=== PATIENT | male | born 1955 | race Caucasian/White ===

== ENCOUNTER → 2019-02-16 | Outpatient (CLI) | payer MEDICARE, OTHER ==
[~2019-02-16] MED LIST: AZIT250 PO; CARI350 PO; CYCL10; HYDACE10B PO; HYDACE5; HYDACE5 PO; IBUP600 PO; META400 PO; NAPR500; NAPR500 PO; NICO21TP TOP; Permethrin60 GM TP; Ultram50 MG PO; VICO; Veetids 500500 MG PO
[2019-02-16 19:25] LABS: Alanine Aminotransfer (ALT/SGP 19 U/L (12-78); Albumin, Blood 3.4 g/dL (3.4-5.0); Albumin/Globulin Ratio 0.6 (0.8-1.8); Alk Phos 92 U/L (50-136); Anion Gap 3 mmol/L (6-16); Aspartate Aminotrans (AST/SGOT 20 U/L (12-37); Bilirubin, Total 0.6 mg/dL (0.1-1.0); Blood Urea Nitrogen 7 mg/dL (8-24); Bun/Creatinine Ratio 8.9 (12.0-20.0); CO2, Blood 30 mmol/L (21-32); Calcium, Blood 8.9 mg/dL (8.5-10.1); Chloride, Blood 104 mmol/L (98-108); Creatinine, Blood 0.79 mg/dL (0.60-1.20); Globulin, Blood 5.7 g/dL (2.2-4.0); Glomerular Filtration Rate >60 (60-); Glucose, Blood 123 mg/dL (70-99); Potassium, Blood 3.8 mmol/L (3.5-5.5); Sodium, Blood 137 mmol/L (136-145); Total Protein, Blood 9.1 g/dL (6.4-8.2)
== END | disposition home or self-care (01) ==
LOC: LAB 18:32 → LAB SHORT 18:32
PROVIDERS: Nurse Practitioner Family
DX: R74.8 Abnormal levels of other serum enzymes (principal)
CPT/HCPCS: 80053

== ENCOUNTER 2019-09-28 21:50 | Emergency (ER) | payer MEDICARE, OTHER ==
[~2019-09-28] VITALS: Ht 167.6 cm; Wt 68.0 kg
[2019-09-28] MEDS ORDERED: Mobic7.5 MG PO (22:04)
[2019-09-28] MEDS ORDERED: CYCL10 PO (23:18)
[2019-09-28] MEDS ORDERED: LIDO700A20 TOP (23:18)
== END 2019-09-28 23:38 | disposition home or self-care (01) ==
LOC: ER 21:50
DX: G89.29 Other chronic pain (principal); M54.5 Low back pain; Z87.891 Personal history of nicotine dependence; Z79.891 Long term (current) use of opiate analgesic
CPT/HCPCS: 96372; 99283-25; A9270; J1170; J1885

== ENCOUNTER 2019-11-08 10:37 | Day surgery (SDC) | payer MEDICARE, OTHER ==
[~2019-11-08] VITALS: Ht 167.6 cm; Wt 65.0 kg
[~2019-11-08 10:37] MED LIST changes: +AMOCLA875 PO; +CYCL10 PO; +GUAI600T33 PO; +LIDO700A20 TOP; +Mobic7.5 MG PO; +Percocet 5-3251 EACH PO; +VICODIN ES 7.51 EACH PO
--- NOTE | 2019-11-08 11:15 | NUR ---
Ambulatory in Day Surgery. History, Chart, Medications and Allergies reviewed before start of procedure.Patient confirms NPO status and agrees with scheduled surgery. Lungs clear T/O to Auscultation. Spiritual care visit conducted BY FATHER YORDY PER REQUEST OF PT AND . FATHER YORDY provided companionship, emotional support and prayer. Patient and or family unit engaged well and verbalized appreciation. Patient and displayed evidence of stabilization, catharsis, peace or laureen. Patient States Post-Procedure ride home has been arranged WITH .
--- NOTE | 2019-11-08 12:30 | NUR ---
11/08/19 1230 JADE NAILS History, Chart, Medications and Allergies reviewed before start of procedure.3-LEAD EKG REVIEWED WITH PHYSICIAN PRIOR TO START OF PROCEDURE.O2 VIA N/C INTACT THROUGHOUT SEDATION/PROCEDURE. MONITOR INTACT WITH CONTINUOUS PULSE OXIMETRY AND INTERMITTENT BP.
--- NOTE | 2019-11-08 13:59 | NUR ---
MAINTENANCE TECHNICIAN 2ND SHIFT TRANSFERED PT VIA [facility] FOR CHEST XRAY.
--- NOTE | 2019-11-08 14:00 | NUR ---
LATE ENTRY 1334 PT INTO STEP. VSS[address] ESPINAL AT BEDSIDE TO CONSULT WITH PT. DR. ESPINAL STATED HE HAS ALREADY SPOKEN WITH PT'S . PT STATES HE IS COMFORTABLE AT THIS TIME. WILL CONTINUE TO MONITOR.
--- NOTE | 2019-11-08 14:07 | NUR ---
RADIOLOGIST CALLED REPORTS CXR CLEAR, NO ISSUES
--- NOTE | 2019-11-08 15:08 | NUR ---
PT AMBULATED TO RESTROOM WITH RN ASSIST. PT GAIT A BIT UNSTEADY. PT STATES NO NAUSEA OR DIZZINESS.
--- NOTE | 2019-11-08 15:36 | NUR ---
Discharge instructions reviewed with patient. Patient verbalizes understanding. Copy given to patient to take home. PT MEETS CRITERIA FOR D/C. Discharged via wheelchair to private car for ride home. PT STATED SATISFACTION OF CARE.
[2019-11-16 07:21] LABS: Performing Lab SYMBIODX; Test Name PD-L1 LUNG
== END 2019-11-08 15:36 | disposition home or self-care (01) ==
LOC: ORSCMMR 10:37 → EDSTATUS 12:00 → ORD 12:00 → ORSCMMR 15:36 → MRI 17:00
PROVIDERS: Internal Medicine Critical Care Medicine; Physician Assistant Medical
PROC: 0BJ08ZZ Inspection of Tracheobronchial Tree, Via Natural or Artificial Opening Endoscopic (ICD-10-PCS; principal; 2019-11-08 12:00)
DX: Z01.818 Encounter for other preprocedural examination (principal); C34.2 Malignant neoplasm of middle lobe, bronchus or lung
CPT/HCPCS: 71045; 88108; 88305; 88360; J2250; J3010; J7120

== ENCOUNTER 2019-11-12 02:09 | Inpatient (IN) | payer MEDICARE, OTHER ==
[~2019-11-12] VITALS: Ht 167.6 cm; Wt 64.9 kg
[2019-11-12] MEDS ORDERED: ACET325 (02:33)
[2019-11-12] MEDS ORDERED: MELO7.5 (02:33)
[2019-11-12] MEDS ORDERED: LEVFLO500 PO (02:33)
[2019-11-12 02:40] LABS: BASOPHILS ABSOLUTE AUTO 0.04 K/mm3 (0.00-0.23); BASOPHILS PERCENT AUTO 0 % (0-2); EOSINOPHILS ABSOLUTE AUTO 0.02 K/mm3 (0.00-0.68); EOSINOPHILS PERCENT AUTO 0 % (0-6); Hematocrit 46.5 % (37.0-53.0); Hemoglobin 15.7 g/dL (13.5-17.5); IMMATURE GRAN ABSOLUTE AUTO 0.06 K/mm3 (0.00-0.10); IMMATURE GRAN PERCENT AUTO 0 % (0-1); LYMPHOCYTES ABSOLUTE AUTO 4.03 K/mm3 (0.84-5.20); LYMPHOCYTES PERCENT AUTO 30 % (21-46); MONOCYTES ABSOLUTE AUTO 0.87 K/mm3 (0.16-1.47); MONOCYTES PERCENT AUTO 6 % (4-13); Mean Corpuscular HGB 29.6 pg (26.0-34.0); Mean Corpuscular HGB Conc 33.8 g/dL (31.5-36.5); Mean Corpuscular Volume 88 fL (80-100); Mean Platelet Volume 10.5 fL (9.1-12.4); NEUTROPHILS ABSOLUTE AUTO 8.55 K/mm3 (1.96-9.15); NEUTROPHILS PERCENT AUTO 63 % (41-73); Platelet Count 190 K/mm3 (150-400); RDW Coefficient Variation 13.8 % (11.7-14.2); RDW Standard Deviation 44.2 fL (35.1-46.3); Red Blood Cell Count 5.31 M/mm3 (4.30-5.90); White Blood Cell Count 13.57 K/mm3 (4.00-11.30)
[2019-11-12 02:59] LABS: Alanine Aminotransfer (ALT/SGP 14 U/L (12-78); Albumin, Blood 2.5 g/dL (3.4-5.0); Albumin/Globulin Ratio 0.4 (0.8-1.8); Alk Phos 75 U/L (50-136); Anion Gap 11 mmol/L (6-16); Aspartate Aminotrans (AST/SGOT 20 U/L (12-37); Bilirubin, Total 0.8 mg/dL (0.1-1.0); Blood Urea Nitrogen 23 mg/dL (8-24); Bun/Creatinine Ratio 25.3 (12.0-20.0); CO2, Blood 22 mmol/L (21-32); Calcium, Blood 9.5 mg/dL (8.5-10.1); Chloride, Blood 100 mmol/L (98-108); Creatinine, Blood 0.91 mg/dL (0.60-1.20); Globulin, Blood 5.9 g/dL (2.2-4.0); Glomerular Filtration Rate >60 (60-); Glucose, Blood 105 mg/dL (70-99); Potassium, Blood 3.8 mmol/L (3.5-5.5); Sodium, Blood 133 mmol/L (136-145); Total Protein, Blood 8.4 g/dL (6.4-8.2)
[2019-11-12 03:13] LABS: Magnesium, Blood 1.7 mg/dL (1.6-2.4); Troponin I <0.015 ng/mL (0.000-0.040)
--- NOTE | 2019-11-12 07:21 | NUR ---
CHANGE OF SHIFT ADMIT PT SETTLED INTO THE ROOM FROM ER. RESTING IN BED WITHOUT S/S OF DISTRESS, AT BEDSIDE. REPORT GIVEN TO DAYSHIFT RN TO ASSUME CARE OF PT AT THIS TIME.
[2019-11-12 14:31] LABS: Adenovirus Not Detected (NOT DETECT); Bordetella pertussis Not Detected (NOT DETECT); Chlamydophila pneumoniae Not Detected (NOT DETECT); Coronavirus 229E Not Detected (NOT DETECT); Coronavirus HKU1 Not Detected (NOT DETECT); Coronavirus NL63 Not Detected (NOT DETECT); Coronavirus OC43 Not Detected (NOT DETECT); Human Metapneumovirus Not Detected (NOT DETECT); Human Rhinovirus/Enterovirus Not Detected (NOT DETECT); Influenza A Not Detected (NOT DETECT); Influenza A/2009-H1 Not Detected (NOT DETECT); Influenza A/H1 Not Detected (NOT DETECT); Influenza A/H3 Not Detected (NOT DETECT); Influenza B Not Detected (NOT DETECT); Mycoplasma pneumoniae Not Detected (NOT DETECT); Parainfluenza Virus 1 Not Detected (NOT DETECT); Parainfluenza Virus 2 Not Detected (NOT DETECT); Parainfluenza Virus 3 Not Detected (NOT DETECT); Parainfluenza Virus 4 Not Detected (NOT DETECT); Respiratory Syncytial Virus Not Detected (NOT DETECT)
--- NOTE | 2019-11-12 16:23 | NUR ---
SHIFT SUMMARY PT A&O X4, PT TOLORATED SHOWER WELL. PT NEELAM PAIN DURING THIS SHIFT. PT REPORTED ANXIETY AND WENT TO THE ROOM PT SLEEPING QUIETLY. DRESSING CHANGED ON RIGHT ROOT AND LEFT KNEE. PLANS D/C HOME TOMORROW. WILL COUNTINE TO MONITOR AND EPORT TO ONCOMING SHIFT.
--- NOTE | 2019-11-12 16:34 | NUR ---
SHIFT SUMMARY PT RESTING MOST OF THE DAY. PT HAD ONE EPISODE OF EMISIS AND WAS MEDICATED. PT WAS MEDICATED X1 FOR PAIN. DR. OLIVERA PROVIDED CONSULT TODAY. CITLALLI CRUZ TO MONITOR AND REPORT TO ONCOMING SHIFT.
[2019-11-13 05:39] LABS: Hemoglobin 13.8 g/dL (13.5-17.5); Mean Corpuscular HGB 29.4 pg (26.0-34.0); Mean Corpuscular HGB Conc 32.9 g/dL (31.5-36.5); Mean Corpuscular Volume 89 fL (80-100); Mean Platelet Volume 11.1 fL (9.1-12.4); Platelet Count 184 K/mm3 (150-400); RDW Coefficient Variation 13.9 % (11.7-14.2); RDW Standard Deviation 45.6 fL (35.1-46.3); White Blood Cell Count 10.78 K/mm3 (4.00-11.30)
[2019-11-13 06:16] LABS: Alanine Aminotransfer (ALT/SGP 9 U/L (12-78); Albumin, Blood 2.1 g/dL (3.4-5.0); Albumin/Globulin Ratio 0.4 (0.8-1.8); Alk Phos 60 U/L (50-136); Anion Gap 7 mmol/L (6-16); Aspartate Aminotrans (AST/SGOT 12 U/L (12-37); Bilirubin, Total 0.8 mg/dL (0.1-1.0); Blood Urea Nitrogen 14 mg/dL (8-24); CO2, Blood 26 mmol/L (21-32); Calcium, Blood 8.8 mg/dL (8.5-10.1); Chloride, Blood 102 mmol/L (98-108); Creatinine, Blood 0.78 mg/dL (0.60-1.20); Glomerular Filtration Rate >60 (60-); Glucose, Blood 86 mg/dL (70-99); Potassium, Blood 3.7 mmol/L (3.5-5.5); Sodium, Blood 135 mmol/L (136-145); Total Protein, Blood 7.1 g/dL (6.4-8.2)
--- NOTE | 2019-11-13 07:37 | NUR ---
SHIFT SUMMARY PT CONTINUED TO HAVE RIGHT CX DISCOMFORT AND INCREASED COUGH. PT MEDICATED PER EARNESTINE AND TESSALON WAS ORDERED. PT RESPONDED WELL TO 50 MCG OF FENT. AND COUGH MED. PT WAS ABLE TO SLEEP WELL T/O SLEEP. PT HAD NO OTHER ISSUES NOTED. CALL LIGHT IN REACH.
--- NOTE | 2019-11-13 18:32 | NUR ---
NO ACUTE CHANGES. PATIENT REQUESTED AND WAS GIVEN PAIN MEDS ONCE THIS SHIFT. HE HAS BEEN ALERT AND ORIENTED . HE IS WEAK BUT WAS ABLE TO SHOWER TODAY. HAS BEEN AT BEDSIDE THROUGHOUT THE SHIFT.
--- NOTE | 2019-11-14 06:48 | NUR ---
PT with pneumonia and recently dx pneumonia continues on ABX IV to treat. Oncology consult will start chemo tomorrow. Room air, tolerating diet with some constipation. Bowel care protocol orders obtained. Medicated with fentanyl 50 mcg x 1 and tylenol 650 mg. Continues with fevers, which are much lower orally than temporal. in and supportive, Support offered for lung cancer dx exsmoker quit 7 years ago. Pleasant and hopeful.
--- NOTE | 2019-11-14 17:42 | NUR ---
NO ACUTE CHANGES. PATIENT REMAINS WEAK BUT IS ABLE TO AMBULATE TO THE RESTROOM AND SHOWER. HE USES THE CALL LIGHT APPROPRIATELY AND IS ALERT AND ORIENTED. HAS BEEN AT BEDSIDE THROUGH OUT THE DAY. APPETITE IMPROVING BUT ACCORDING TO FAMILY NOT HIS USUAL . PATIENT HAS REQUESTED AND BEEN GIVEN PAIN MEDS ONCE THIS SHIFT. CALL LIGHT WITHIN REACH.
--- NOTE | 2019-11-15 04:15 | NUR ---
SHIFT SUMMARY PT HAD SOME CX PAIN AND COUGH. PT TX PER EMAR WITH GOOD RESULTS. PT MAY BENEFIT FROM A SLEEP AID. PT DID SLEEP WELL THIS SHIFT. NO OTHER ISSUES NOTED. PT CURRENTLY AWAKE IN NO DISTRESS. CALL LIGHT IN REACH.
[2019-11-15 04:44] LABS: BASOPHILS ABSOLUTE AUTO 0.04 K/mm3 (0.00-0.23); BASOPHILS PERCENT AUTO 0 % (0-2); EOSINOPHILS ABSOLUTE AUTO 0.07 K/mm3 (0.00-0.68); EOSINOPHILS PERCENT AUTO 1 % (0-6); Hematocrit 40.7 % (37.0-53.0); Hemoglobin 13.6 g/dL (13.5-17.5); IMMATURE GRAN ABSOLUTE AUTO 0.05 K/mm3 (0.00-0.10); IMMATURE GRAN PERCENT AUTO 1 % (0-1); LYMPHOCYTES ABSOLUTE AUTO 3.13 K/mm3 (0.84-5.20); LYMPHOCYTES PERCENT AUTO 30 % (21-46); MONOCYTES ABSOLUTE AUTO 0.56 K/mm3 (0.16-1.47); MONOCYTES PERCENT AUTO 5 % (4-13); Mean Corpuscular HGB 29.4 pg (26.0-34.0); Mean Corpuscular HGB Conc 33.4 g/dL (31.5-36.5); Mean Corpuscular Volume 88 fL (80-100); Mean Platelet Volume 10.7 fL (9.1-12.4); NEUTROPHILS ABSOLUTE AUTO 6.75 K/mm3 (1.96-9.15); NEUTROPHILS PERCENT AUTO 64 % (41-73); Platelet Count 183 K/mm3 (150-400); RDW Coefficient Variation 13.9 % (11.7-14.2); RDW Standard Deviation 44.8 fL (35.1-46.3); Red Blood Cell Count 4.62 M/mm3 (4.30-5.90)
[2019-11-15 05:02] LABS: Albumin, Blood 1.9 g/dL (3.4-5.0); Anion Gap 7 mmol/L (6-16); Blood Urea Nitrogen 11 mg/dL (8-24); Bun/Creatinine Ratio 13.7 (12.0-20.0); CO2, Blood 24 mmol/L (21-32); Calcium, Blood 8.5 mg/dL (8.5-10.1); Chloride, Blood 102 mmol/L (98-108); Glomerular Filtration Rate >60 (60-); Glucose, Blood 106 mg/dL (70-99); Phosphorus, Blood 2.1 mg/dL (2.5-4.9); Potassium, Blood 3.5 mmol/L (3.5-5.5); Sodium, Blood 133 mmol/L (136-145)
--- NOTE | 2019-11-15 05:22 | NUR ---
PT FOUND WITH ELEVATED TEMP TX WITH TYLENOL. WILL REASSESS.
--- NOTE | 2019-11-15 17:51 | NUR ---
SHIFT SUMMARY PATIENT IS TOLERATING HIS IV ANTIBIOTICS AND FLUIDS WELL. RECIEVED A SHOWER TODAY. INDEPENDENT IN THE ROOM. ASSISTS WITH SOME ADLS. CURRENTLY EATING DINNER. AWAITING CHEMO IN THE AM.
--- NOTE | 2019-11-16 04:05 | NUR ---
Shift Summary Patient has slept a fair amount. He requested PRN fentanyl for right-sided chest/pleuritic pain and this was effective.
[2019-11-16 05:01] LABS: Albumin, Blood 1.9 g/dL (3.4-5.0); Anion Gap 8 mmol/L (6-16); Blood Urea Nitrogen 10 mg/dL (8-24); Bun/Creatinine Ratio 14.5 (12.0-20.0); CO2, Blood 23 mmol/L (21-32); Calcium, Blood 8.4 mg/dL (8.5-10.1); Chloride, Blood 101 mmol/L (98-108); Creatinine, Blood 0.69 mg/dL (0.60-1.20); Glomerular Filtration Rate >60 (60-); Glucose, Blood 111 mg/dL (70-99); Phosphorus, Blood 2.2 mg/dL (2.5-4.9); Potassium, Blood 3.6 mmol/L (3.5-5.5); Sodium, Blood 132 mmol/L (136-145)
--- NOTE | 2019-11-16 18:47 | NUR ---
ASSUMED CARE/SHIFT SUMMARY PT STABLE, FIRST CHEMO TREATMENT STARTED TODAY PT TOLORATED WELL. PT INDEPENTENT IN ROOM. PT REPORTS FEELING SHAKEY TEMP CHECKED 98.6. PT DIDN'T EAT MUCH OF DINNER. AT BEDSIDE. CALL LIGHT WITH IN REACH WILL COUNTINUE TO MONITOR AND REPORT TO ON COMING NOC RN.
--- NOTE | 2019-11-17 04:20 | NUR ---
Shift Summary Patient slept well overnight. he denied pain and did not request any pain medicaitons. No nausea or other chemotherapy side effects noted except that he stated he felt tired.
[2019-11-17 05:42] LABS: Albumin, Blood 1.8 g/dL (3.4-5.0); Anion Gap 8 mmol/L (6-16); Blood Urea Nitrogen 12 mg/dL (8-24); Bun/Creatinine Ratio 15.7 (12.0-20.0); CO2, Blood 24 mmol/L (21-32); Calcium, Blood 8.5 mg/dL (8.5-10.1); Chloride, Blood 101 mmol/L (98-108); Creatinine, Blood 0.76 mg/dL (0.60-1.20); Glomerular Filtration Rate >60 (60-); Glucose, Blood 99 mg/dL (70-99); Phosphorus, Blood 2.6 mg/dL (2.5-4.9); Potassium, Blood 3.6 mmol/L (3.5-5.5); Sodium, Blood 133 mmol/L (136-145)
[2019-11-17] MEDS ORDERED: BENZ100A PO (11:20)
[2019-11-17] MEDS ORDERED: MELATONIN5 M1 (11:21)
[2019-11-17] MEDS ORDERED: AMOCLA875 PO (11:22)
[2019-11-17] MEDS ORDERED: ZOFRAN4 MG PO (11:23)
--- NOTE | 2019-11-17 12:52 | NUR ---
SHIFT SUMMARY PT AWAKE EARLY THIS AM. NO C/O. SITTING UP IN BED WATCHING TV. UP INDEPENDENTLY TO BTHRM. DR JOHNSON IN TO SEE PT; CLEARED FOR D/C AND TO F/U AT [facility]. PT'S IN AFTER BREAKFAST; PT LATER C/O NAUSEA. MEDCIATED PER EMAR. PT REPORTED THAT HE HADN'T HAD ANY NAUSEA UNTIL AFTER HE ATE. DR GIRALDO PLACED D/C ORDERS AND DISCUSSED F/U CARE WITH PT. PT REQUESTED [facility] PRESCRIPTION FOR HOME IF NEEDED. DR GIRALDO NOTIFIED; MEDICATION ADDED TO D/C LIST. IV'S D/C'D WNL. ASSISTED PT IN GETTING DRESSED. BENDER MACHINE ASSISTED PT OUT TO CAR VIA W/C.
== END 2019-11-17 12:30 | disposition home or self-care (01) | DRG 871 ==
LOC: ER 02:09 → MEDS 02:10 → ER 05:37 → MEDS 05:37 → ENPENDDIS 11-17 10:00 → MEDS 11-17 12:30
PROVIDERS: Emergency Medicine; Internal Medicine; ADMIT Internal Medicine
DX: A41.9 Sepsis, unspecified organism (principal); J18.8 Other pneumonia, unspecified organism; E22.2 Syndrome of inappropriate secretion of antidiuretic hormone; C34.01 Malignant neoplasm of right main bronchus; J43.9 Emphysema, unspecified; E83.39 Other disorders of phosphorus metabolism; E86.0 Dehydration; G47.00 Insomnia, unspecified; Z87.891 Personal history of nicotine dependence
CPT/HCPCS: 0099U; 36415; 71046; 71260; 80053; 80069; 82947; 83605; 83735; 84145; 84484; 85025; 85027; 87040; 87070; 87205; 93005; 93010; 96365; 96367; 96372; 96375; 96376; 99285-25; A9270; G0378; J1170; J1453; J1650; J1956; J2405; J2543; J3010; J7030; J7040; J7050; J7060; J9060; J9201; Q9967

== ENCOUNTER → 2019-12-13 | Outpatient (CLI) | payer MEDICARE, OTHER ==
[~2019-12-13] MED LIST changes: +ACET325; +BENZ100A PO; +LEVFLO500 PO; +MELATONIN5 M1; +MELO7.5; +ZOFRAN4 MG PO
[2019-12-13 14:06] LABS: BASOPHILS ABSOLUTE AUTO 0.02 K/mm3 (0.00-0.23); BASOPHILS PERCENT AUTO 0 % (0-2); EOSINOPHILS ABSOLUTE AUTO 0.02 K/mm3 (0.00-0.68); EOSINOPHILS PERCENT AUTO 0 % (0-6); Hematocrit 38.1 % (37.0-53.0); Hemoglobin 12.5 g/dL (13.5-17.5); IMMATURE GRAN ABSOLUTE AUTO 0.04 K/mm3 (0.00-0.10); IMMATURE GRAN PERCENT AUTO 0 % (0-1); LYMPHOCYTES ABSOLUTE AUTO 9.31 K/mm3 (0.84-5.20); LYMPHOCYTES PERCENT AUTO 70 % (21-46); MONOCYTES ABSOLUTE AUTO 0.47 K/mm3 (0.16-1.47); MONOCYTES PERCENT AUTO 4 % (4-13); Mean Corpuscular HGB 29.6 pg (26.0-34.0); Mean Corpuscular HGB Conc 32.8 g/dL (31.5-36.5); Mean Corpuscular Volume 90 fL (80-100); Mean Platelet Volume 10.3 fL (9.1-12.4); NEUTROPHILS PERCENT AUTO 26 % (41-73); RDW Coefficient Variation 16.1 % (11.7-14.2); RDW Standard Deviation 49.3 fL (35.1-46.3); Red Blood Cell Count 4.22 M/mm3 (4.30-5.90); White Blood Cell Count 13.26 K/mm3 (4.00-11.30)
[2019-12-13 14:26] LABS: Alanine Aminotransfer (ALT/SGP 39 U/L (12-78); Albumin, Blood 2.8 g/dL (3.4-5.0); Albumin/Globulin Ratio 0.6 (0.8-1.8); Alk Phos 108 U/L (50-136); Anion Gap 5 mmol/L (6-16); Aspartate Aminotrans (AST/SGOT 22 U/L (12-37); Bilirubin, Total 0.3 mg/dL (0.1-1.0); Blood Urea Nitrogen 19 mg/dL (8-24); Bun/Creatinine Ratio 26.3 (12.0-20.0); CO2, Blood 27 mmol/L (21-32); Calcium, Blood 9.1 mg/dL (8.5-10.1); Chloride, Blood 104 mmol/L (98-108); Creatinine, Blood 0.72 mg/dL (0.60-1.20); Globulin, Blood 4.6 g/dL (2.2-4.0); Glomerular Filtration Rate >60 (60-); Glucose, Blood 106 mg/dL (70-99); Potassium, Blood 3.4 mmol/L (3.5-5.5); Sodium, Blood 136 mmol/L (136-145); Total Protein, Blood 7.4 g/dL (6.4-8.2)
[2019-12-13 14:28] LABS: Platelet Count 80 K/mm3 (150-400)
== END | disposition home or self-care (01) ==
LOC: LAB SHORT 13:28 → LAB 13:28
PROVIDERS: Internal Medicine Hematology & Oncology
DX: C34.90 Malignant neoplasm of unspecified part of unspecified bronchus or lung (principal)
CPT/HCPCS: 80053; 85025

== ENCOUNTER 2020-01-24 09:05 | Day surgery (SDC) | payer MEDICARE, OTHER ==
[2020-01-24] MEDS ORDERED: XARELTO20 M1 PO (14:21)
[2020-01-24] MEDS ORDERED: OMEP20ER (14:22)
[2020-01-24] MEDS ORDERED: Dexamethasone4 MG PO (14:22)
[2020-01-24] MEDS ORDERED: CYCL10 PO (14:23)
== END 2020-01-24 16:56 | disposition home or self-care (01) ==
LOC: ATC 09:05
DX: C34.31 Malignant neoplasm of lower lobe, right bronchus or lung (principal); D63.0 Anemia in neoplastic disease; Z87.891 Personal history of nicotine dependence
CPT/HCPCS: 36430; 86850; 86900; 86901; 86923; J7050; P9016

== ENCOUNTER 2020-03-19 06:53 | Inpatient (IN) | payer MEDICARE, OTHER ==
[~2020-03-19] VITALS: Ht 167.6 cm; Wt 69.0 kg
[~2020-03-19 06:53] MED LIST changes: +Dexamethasone4 MG PO; +OMEP20ER PO; +XARELTO20 M1 PO
[2020-03-19 07:37] LABS: BASOPHILS ABSOLUTE AUTO 0.02 K/mm3 (0.00-0.23); BASOPHILS PERCENT AUTO 0 % (0-2); EOSINOPHILS ABSOLUTE AUTO 0.14 K/mm3 (0.00-0.68); EOSINOPHILS PERCENT AUTO 2 % (0-6); Hematocrit 43.6 % (37.0-53.0); Hemoglobin 13.5 g/dL (13.5-17.5); IMMATURE GRAN ABSOLUTE AUTO 0.35 K/mm3 (0.00-0.10); IMMATURE GRAN PERCENT AUTO 4 % (0-1); LYMPHOCYTES ABSOLUTE AUTO 1.91 K/mm3 (0.84-5.20); LYMPHOCYTES PERCENT AUTO 21 % (21-46); MONOCYTES ABSOLUTE AUTO 0.36 K/mm3 (0.16-1.47); MONOCYTES PERCENT AUTO 4 % (4-13); Mean Corpuscular Volume 100 fL (80-100); Mean Platelet Volume 10.1 fL (9.1-12.4); NEUTROPHILS ABSOLUTE AUTO 6.52 K/mm3 (1.96-9.15); NEUTROPHILS PERCENT AUTO 70 % (41-73); Platelet Count 141 K/mm3 (150-400); RDW Coefficient Variation 17.3 % (11.7-14.2); RDW Standard Deviation 63.6 fL (35.1-46.3); Red Blood Cell Count 4.35 M/mm3 (4.30-5.90)
[2020-03-19 08:05] LABS: Alanine Aminotransfer (ALT/SGP 18 U/L (12-78); Albumin, Blood 2.3 g/dL (3.4-5.0); Albumin/Globulin Ratio 0.5 (0.8-1.8); Alk Phos 108 U/L (50-136); Anion Gap 5 mmol/L (6-16); Aspartate Aminotrans (AST/SGOT 26 U/L (12-37); Bilirubin, Total 0.6 mg/dL (0.1-1.0); Blood Urea Nitrogen 18 mg/dL (8-24); Bun/Creatinine Ratio 20.3 (12.0-20.0); CO2, Blood 29 mmol/L (21-32); Calcium, Blood 8.3 mg/dL (8.5-10.1); Chloride, Blood 104 mmol/L (98-108); Creatinine, Blood 0.89 mg/dL (0.60-1.20); Globulin, Blood 4.6 g/dL (2.2-4.0); Glomerular Filtration Rate >60 (60-); Glucose, Blood 97 mg/dL (70-99); Potassium, Blood 3.9 mmol/L (3.5-5.5); Sodium, Blood 138 mmol/L (136-145); Total Protein, Blood 6.9 g/dL (6.4-8.2)
[2020-03-19 08:07] LABS: Troponin I <0.015 ng/mL (0.000-0.040)
[2020-03-19] MEDS ORDERED: NORCO PO (10:44)
--- NOTE | 2020-03-19 17:53 | NUR ---
SHIFT SUMMARY PATIENT ADMITTED TO THE UNIT VIA STRETCHER. MAIN CONCERN IS HIS BACK PAIN AND INABILITY TO TAKE DEEP BREATHES. MEDICATED PER EMAR AND STATED IT PROVIDED MUCH RELIEF. VERBALIZED OKAY FOR SATYA ALEXANDER TO KNOW MEDICAL INFORMATION. ALERT AND ORIENTED, ABLE TO MAKE HIS NEEDS KNOWN.
[2020-03-19] MEDS ORDERED: Fentanyl1 EACH TOP (22:21)
[2020-03-19] MEDS ORDERED: NARCAN4 MG (22:22)
[2020-03-20 04:56] LABS: BASOPHILS ABSOLUTE AUTO 0.01 K/mm3 (0.00-0.23); BASOPHILS PERCENT AUTO 0 % (0-2); EOSINOPHILS PERCENT AUTO 0 % (0-6); Hematocrit 41.2 % (37.0-53.0); Hemoglobin 12.9 g/dL (13.5-17.5); IMMATURE GRAN ABSOLUTE AUTO 0.11 K/mm3 (0.00-0.10); IMMATURE GRAN PERCENT AUTO 2 % (0-1); LYMPHOCYTES ABSOLUTE AUTO 1.17 K/mm3 (0.84-5.20); LYMPHOCYTES PERCENT AUTO 24 % (21-46); MONOCYTES PERCENT AUTO 2 % (4-13); Mean Corpuscular HGB 31.2 pg (26.0-34.0); Mean Corpuscular HGB Conc 31.3 g/dL (31.5-36.5); Mean Corpuscular Volume 100 fL (80-100); Mean Platelet Volume 10.6 fL (9.1-12.4); NEUTROPHILS ABSOLUTE AUTO 3.58 K/mm3 (1.96-9.15); NEUTROPHILS PERCENT AUTO 72 % (41-73); Platelet Count 108 K/mm3 (150-400); RDW Coefficient Variation 16.8 % (11.7-14.2); RDW Standard Deviation 61.7 fL (35.1-46.3); Red Blood Cell Count 4.13 M/mm3 (4.30-5.90); White Blood Cell Count 4.97 K/mm3 (4.00-11.30)
--- NOTE | 2020-03-20 05:14 | NUR ---
SHIFT SUMMARY PT HAS HAD NO ACUTE CHANGES THIS SHIFT, MEDICATED 1X FOR MILD PAIN, NO OTHER C/O ANY KIND, SLEPT T/O SHIFT, SLEEPING AT THIS TIME, CALL LIGHT IN REACH, WILL CONT TO MONITOR UNTIL REPORT GIVEN TO DAY RN.
[2020-03-20 05:16] LABS: Anion Gap 6 mmol/L (6-16); Blood Urea Nitrogen 21 mg/dL (8-24); CO2, Blood 25 mmol/L (21-32); Calcium, Blood 8.3 mg/dL (8.5-10.1); Chloride, Blood 107 mmol/L (98-108); Creatinine, Blood 0.62 mg/dL (0.60-1.20); Glomerular Filtration Rate >60 (60-); Glucose, Blood 143 mg/dL (70-99); Potassium, Blood 4.4 mmol/L (3.5-5.5); Sodium, Blood 138 mmol/L (136-145)
--- NOTE | 2020-03-20 17:20 | NUR ---
Shift Summary A/Ox3, pleasant and cooperative with care. Covid-19 results came back as negative, patient has been taken off of droplet isolation, business support Zoë hinojosa. Medicated for back pain x 1 with good results. Dyspnea on exertion with drops in saturation from greater than 90%'s down to the high 80%'s. Saturations did return fairly quickly once patient settled down. No cough noted this shift, afebrile. Patient reported he sleeps mostly in recliner at home; recliner brought in room by BOOK ILLUSTRATOR. Able to make needs known. No other concerns.
--- NOTE | 2020-03-21 05:38 | NUR ---
SHIFT SUMMARY PT IS A 65 Y/O MALE, ADMITTED FOR ACUTE RESPIRATORY FAILURE. HE IS A&O X 3, AND A 1PA UP IN THE ROOM. PT IS ON 10L VIA HIGH FLOW NC. O2 SATS REMAINED >92%. VITAL SIGNS STABLE. PT DENIED ANY COMPLAINTS OF ACUTE PAIN, NAUSEA OR ACUTE SOB, AND SLEPT WELL THROUGH THE NIGHT. NO ACUTE CHANGES IN PT CONDITION NOTED. WILL CONTINUE TO MONITOR AND TREAT PER EMAR UNTIL HAND OFF TO DAY SHIFT RN.
--- NOTE | 2020-03-21 13:54 | NUR ---
DIET CHANGED PER PATIENT REQUEST, DIET HAS BEEN CHANGED FROM REGULAR TO [facility] SOFT. THIS RN WILL LET DR. DELEON KNOW.
--- NOTE | 2020-03-21 18:48 | NUR ---
Shift Summary Patient remains on 10L with saturations above 90% t/o the day. Tolerated shower well with minimal assistance. Medicated for 8/10 back pain x 2 with good results. No other acute concerns or changes.
--- NOTE | 2020-03-22 05:27 | NUR ---
EMERGENCY MEDICINE PHYSICIAN SUMMARY PT A/O X4. PLEASANT AND COOPERATIVE. MEDICATED FOR CHRONIC BACK PAIN ONCE THIS SHIFT. VSS. HAS BEEN ON 10 L VIA HIGH FLOW NASAL CANNULA SATTING IN THE MID 'S WITH HUMIDIFIER. NO ACUTE CHANGES. SLEPT WELL TONIGHT.
--- NOTE | 2020-03-22 15:58 | NUR ---
SHIFT SUMMARY PATIENT CONTINUES TO HAVE BACK PAIN. ABLE TO GET UP AND WALK, USING HEATING PAD AND MEDS PER EMAR. REQUIRING 10 HIGH FLOW O2 WITH HUMIDIFIED AIR. O2 IN LOW 90'S. WORKING WITH PT. ON PHONE WITH . NO ACUTE CHANGES.
--- NOTE | 2020-03-22 21:02 | NUR ---
1999 PT HAS BEEN TITIRATED DOWN TO 9L HIGH FLOW FROM 10 L. 2100 MAINTAINING SAT IN THE MID 90S.
--- NOTE | 2020-03-23 04:14 | NUR ---
STEFFEN HOUSE SUPERVISOR SUMMARY PT A/O X4. DENIES CHEST PAIN, SOB AT REST. ON 9 L O2 VIA HIGH FLOW NC WITH SAT AVERAGING LOW TO MID 90'S. PT'S LUNGS ARE CLEAR THROUGHOUT 4 REYES. PT HAS STAYED UP A LITTLE AFTER MIDNIGHT. PT RECIEVES SOLUMETEROL AND WAS EDUCATED ON THE RESTLESSNESS SIDE EFFECT IT MAY HAVE. PT AGREED TO HAVE SOMETHING THAT WILL HELP HIM SLEEP. HOSPITALIST-VJ NOTIFIED. BENADRYL PO 25MG X1 ORDERED AT 0005. PT HAS SLEPT WELL SINCE BENADRYL GIVEN.
--- NOTE | 2020-03-23 19:03 | NUR ---
END OF SHIFT SUMMARY: PATIENT REPORTED FEELING BETTER. PATIENT ON 9L AND SATTING FROM 88-91%. BY THE END OF THE SHIFT, PATIENT WAS TITRATED DOWN TO 6L AND SATTING FROM 93-94%. SOME SOB WITH EXERTION AND DESATURATION DOWN TO 88% ONCE BACK IN BED. PATIENT RECOVERED QUICKLY AT REST. PATIENT CONTINUES TO HAVE A MINIMAL APPETITE. PATIENT DENIES NAUSEA OR ABDOMINAL DISCOMFORT. ENCOURAGED PO INTAKE AND PROVIDED WITH CHOCOLATE ENSURE AT PATIENT REQUEST. PATIENT UP TO RECLINER FOR LUNCH. PATIENT SEEMS HESITANT TO MOBILIZE. ENCOURAGED PATIENT TO KEEP UP STRENGTH TO HELP WITH RETURN HOME.
--- NOTE | 2020-03-24 05:56 | NUR ---
SHIFT SUMMARY A/O, ABLE TO MAKE NEEDS KNOWN. COOPERATIVE WITH CARE. CALLS AND ANSWERS QUESTIONS APPROPRIATELY. C/O PAIN TO BACK THAT IS CHRONIC IN NATURE; MEDICATED PER EMAR. SPO2 REMAINED >92% PER CONT BIOX ON 5L VIA HIGH FLOW NC T/O NIGHT. NO C/O SOB/DYSPNEA. APPEARED TO REST MUCH OF NIGHT. VSS/AFEBRILE. NO ACUTE CHANGES NOTED OVERNIGHT. BED IN LOWEST POSITION. CALL LIGHT AND BELONGINGS WITHIN REACH. WCTM. REPORT TO ONCOMING RN.
--- NOTE | 2020-03-24 16:14 | NUR ---
Shift Summary A/Ox3, up in chair for most meals. Titrated O2 down to 2L, maintaining saturations above 90%. Patient remains on humidified O2 via high flow NC. C/O back pain 06/30, medicated x 1 per EMAR with good results. Appetite is moderate. 3+ edema in bilateral ankles, 1+ BLE. Possible discharge to home with HH tomorrow 03/25/20 after home O2 eval.
[2020-03-25 05:43] LABS: BASOPHILS ABSOLUTE AUTO 0.01 K/mm3 (0.00-0.23); BASOPHILS PERCENT AUTO 0 % (0-2); EOSINOPHILS PERCENT AUTO 0 % (0-6); Hematocrit 38.2 % (37.0-53.0); Hemoglobin 12.1 g/dL (13.5-17.5); IMMATURE GRAN ABSOLUTE AUTO 0.07 K/mm3 (0.00-0.10); IMMATURE GRAN PERCENT AUTO 1 % (0-1); LYMPHOCYTES ABSOLUTE AUTO 0.84 K/mm3 (0.84-5.20); LYMPHOCYTES PERCENT AUTO 12 % (21-46); MONOCYTES ABSOLUTE AUTO 0.29 K/mm3 (0.16-1.47); MONOCYTES PERCENT AUTO 4 % (4-13); Mean Corpuscular HGB 30.9 pg (26.0-34.0); Mean Corpuscular HGB Conc 31.7 g/dL (31.5-36.5); Mean Corpuscular Volume 98 fL (80-100); Mean Platelet Volume 10.8 fL (9.1-12.4); NEUTROPHILS ABSOLUTE AUTO 6.08 K/mm3 (1.96-9.15); NEUTROPHILS PERCENT AUTO 83 % (41-73); Platelet Count 166 K/mm3 (150-400); RDW Coefficient Variation 15.8 % (11.7-14.2); RDW Standard Deviation 56.6 fL (35.1-46.3); Red Blood Cell Count 3.91 M/mm3 (4.30-5.90); White Blood Cell Count 7.29 K/mm3 (4.00-11.30)
--- NOTE | 2020-03-25 05:51 | NUR ---
SHIFT SUMMARY AOX4. VSS. DENIES N/V OR DYSPNEA @REST. ON 3L O2 W/SPO2 >90%. E/U RESPIRATIONS. LUNGS ARE DIM W/CRACKLES HEARD IN RLL. REPORTS 8/10 PAIN IN BACK & RT SIDE, MEDICATED 2X W/HYDROCODONE & 1X W/FLEXERIL, STATES RELIEF. CALL LIGHT IN REACH. WCTM.
[2020-03-25 06:09] LABS: C-REACTIVE PROTEIN, EXT RANGE 0.591 mg/dL (0.000-0.300)
[2020-03-25 06:10] LABS: Alanine Aminotransfer (ALT/SGP 28 U/L (12-78); Albumin, Blood 2.2 g/dL (3.4-5.0); Albumin/Globulin Ratio 0.6 (0.8-1.8); Alk Phos 74 U/L (50-136); Anion Gap 5 mmol/L (6-16); Aspartate Aminotrans (AST/SGOT 20 U/L (12-37); Bilirubin, Total 0.4 mg/dL (0.1-1.0); Blood Urea Nitrogen 29 mg/dL (8-24); CO2, Blood 28 mmol/L (21-32); Calcium, Blood 8.7 mg/dL (8.5-10.1); Chloride, Blood 107 mmol/L (98-108); Creatinine, Blood 0.55 mg/dL (0.60-1.20); Globulin, Blood 3.9 g/dL (2.2-4.0); Glomerular Filtration Rate >60 (60-); Glucose, Blood 124 mg/dL (70-99); Potassium, Blood 4.4 mmol/L (3.5-5.5); Sodium, Blood 140 mmol/L (136-145); Total Protein, Blood 6.1 g/dL (6.4-8.2)
[2020-03-25] MEDS ORDERED: HYDACE10B PO (12:05)
[2020-03-25] MEDS ORDERED: AZIT500 PO (12:06)
--- NOTE | 2020-03-25 15:14 | NUR ---
Discharge Summary A/Ox3, patient discharging to home with HH. Home O2 completed and patient needs 3L @ rest, 5L with activity; patient sent home with portable oxygen tank. Reviewed discharge paperwork and education, he is to f/u with Dr. Foster and his PCP @ [facility], sisal picker Rx which was faxed to [facility] by cubing machine tenderSTAN Camp, and call [facility] to update them about when patient will be home to receive his medical supplies. Patient verbalized understanding. Escorted by SHELIA Ybarra via w/c, IV removed and was WNL. Patient denies any questions at this time. Transportation provided by patient's . On a side note, patient has been up in chair for most of the day and for meals, he also had a shower for which he tolerated well. Medicated x 2 for pain with good results. No other changes.
== END 2020-03-25 15:14 | disposition home or self-care (01) | DRG 205 ==
LOC: ER 06:53 → MEDS 10:27
PROVIDERS: Emergency Medicine; Internal Medicine; ADMIT Internal Medicine
DX: J70.0 Acute pulmonary manifestations due to radiation (principal); J96.01 Acute respiratory failure with hypoxia; C91.10 Chronic lymphocytic leukemia of B-cell type not having achieved remission; M48.54XA Collapsed vertebra, not elsewhere classified, thoracic region, initial encounter for fracture; C34.90 Malignant neoplasm of unspecified part of unspecified bronchus or lung; Z86.711 Personal history of pulmonary embolism; J18.9 Pneumonia, unspecified organism
CPT/HCPCS: 36415; 71045; 71260; 80048; 80053; 83880; 84145; 84484; 85025; 86140; 93005; 93010; 94640; 94667; 94761; 94762; 96365-59; 96367; 97110; 97116; 97162; 97166; 97530; 97535; 99285-25; J0456; J0696; J1885; J2930; J7050; Q0163; Q9967; U0003

== ENCOUNTER 2020-07-09 06:20 | Inpatient (IN) | payer MEDICARE, OTHER ==
[~2020-07-09] VITALS: Ht 167.6 cm; Wt 74.3 kg
[~2020-07-09 06:20] MED LIST changes: +AZIT500 PO; +DEXA4 PO; +Fentanyl1 EACH TOP; +HYDROCODONE-AC1 EAC7 PO; +MELO7.5 PO; +Metoclopramide10 MG PO; +NARCAN4 MG; +NORCO PO; +OXYC40ER PO; +Prednisone10 MG PO; +Tessalon200 MG PO; +Ventolin/Prove6.7 GM; +Ventolin/Prove6.7 GM INH; +XANAX0.25 MG PO
[2020-07-09 06:59] LABS: BASOPHILS ABSOLUTE AUTO 0.05 K/mm3 (0.00-0.23); BASOPHILS PERCENT AUTO 0 % (0-2); EOSINOPHILS ABSOLUTE AUTO 0.07 K/mm3 (0.00-0.68); EOSINOPHILS PERCENT AUTO 0 % (0-6); Hematocrit 45.6 % (37.0-53.0); Hemoglobin 13.9 g/dL (13.5-17.5); IMMATURE GRAN ABSOLUTE AUTO 0.14 K/mm3 (0.00-0.10); IMMATURE GRAN PERCENT AUTO 1 % (0-1); LYMPHOCYTES ABSOLUTE AUTO 5.21 K/mm3 (0.84-5.20); LYMPHOCYTES PERCENT AUTO 33 % (21-46); MONOCYTES ABSOLUTE AUTO 0.49 K/mm3 (0.16-1.47); MONOCYTES PERCENT AUTO 3 % (4-13); Mean Corpuscular HGB 28.5 pg (26.0-34.0); Mean Corpuscular HGB Conc 30.5 g/dL (31.5-36.5); Mean Corpuscular Volume 94 fL (80-100); Mean Platelet Volume 10.1 fL (9.1-12.4); NEUTROPHILS ABSOLUTE AUTO 10.04 K/mm3 (1.96-9.15); NEUTROPHILS PERCENT AUTO 63 % (41-73); Platelet Count 216 K/mm3 (150-400); RDW Coefficient Variation 18.6 % (11.7-14.2); RDW Standard Deviation 63.3 fL (35.1-46.3); Red Blood Cell Count 4.87 M/mm3 (4.30-5.90)
[2020-07-09 07:16] LABS: Alanine Aminotransfer (ALT/SGP 29 U/L (12-78); Albumin, Blood 2.1 g/dL (3.4-5.0); Albumin/Globulin Ratio 0.4 (0.8-1.8); Alk Phos 136 U/L (50-136); Anion Gap 5 mmol/L (6-16); Aspartate Aminotrans (AST/SGOT 24 U/L (12-37); Bilirubin, Total 0.8 mg/dL (0.1-1.0); Blood Urea Nitrogen 17 mg/dL (8-24); Bun/Creatinine Ratio 22.9 (12.0-20.0); CO2, Blood 32 mmol/L (21-32); Calcium, Blood 8.7 mg/dL (8.5-10.1); Chloride, Blood 102 mmol/L (98-108); Creatinine, Blood 0.74 mg/dL (0.60-1.20); Globulin, Blood 5.5 g/dL (2.2-4.0); Glomerular Filtration Rate >60 (60-); Glucose, Blood 116 mg/dL (70-99); Potassium, Blood 3.8 mmol/L (3.5-5.5); Sodium, Blood 139 mmol/L (136-145); Total Protein, Blood 7.6 g/dL (6.4-8.2)
--- NOTE | 2020-07-09 10:30 | NUR ---
Pt visit in the ED this AM. Spoke with Dr De Santiago and discussed case. Pt and family briefly mentioned hospice this AM. Plan will be to admitt Pt to hospital. Pt resting on gurny and is wearing BIPAP at the time of this RN's visit. Pt is A&OX4. Pt's Frannie is present. Engaged in therapeutic listening and discussion regardig goals of care and plan to admit Pt to hospital. Pt reports wanting to go home and is not wanting to be admitted to the hospital. Frannie reports Pt has not been home. Pt was hospitalized at [place] and then went to [facility] for rehabilitation. Frannie reports Pt has been bedbound and is incontinent of bowel. Frannie reports Pt did not want to work with physical therapy at [facility] due to the pain. Pt has been working with occupational therapy on a limited basis. Frannie reports occupational therapy opened the conversation regarding hospice. Answered questions and discussed concerns. Educated Pt and spouse on hospice philosophy with V/U made by spouse. Pt is still reporting wanting to go home. Educated on the risk of going home at this time. Dr De Santiago arrives and discusses findings. Pt has PNA and sepsis. After further discussion Pt reports being agreeable to hospital stay and states "Only for a couple of days". No other concerns reported at this time. Pt and family are agreeable for continued supportive Palliative Care visits. Spoke with Hospitalist Efra and discussed case. Palliative Care will remain available.
[2020-07-09 11:24] LABS: Source, Urine Clean Catch
[2020-07-09 11:34] LABS: Bilirubin, Urine Neg (Neg); Blood, Urine 1+ (Neg); Glucose Qualitative, Urine Neg (Neg); Ketones, Urine Neg (Neg); Leukocyte Esterase, Urine Neg (Neg); Nitrite, Urine Neg (Neg); Protein, Urine Neg (Neg); Specific Gravity, Urine 1.005 (1.003-1.022); Urobilinogen, Urine 2+ (Normal); pH, Urine 6.5 (5.0-8.0)
[2020-07-09 11:40] LABS: Appearance, Urine Clear (Clear); Color, Urine Yellow (P-Yellow)
[2020-07-09 11:42] LABS: Bacteria Few /hpf; Red Blood Cells, Urine 0-2 /hpf (0-2); Squamous Epithelial Cells Not Seen /hpf (Few); White Blood Cells, Urine 0-2 /hpf (0-5)
[2020-07-09 11:45] LABS: Calcium Oxalate Crystals Few /hpf
[2020-07-09] MEDS ORDERED: Norco 10-325 T1 EACH PO (13:02)
[2020-07-09] MEDS ORDERED: METO10 PO (13:05)
[2020-07-09] MEDS ORDERED: BENZ100A PO (13:06)
[2020-07-09] MEDS ORDERED: CYCL10 PO (13:07)
--- NOTE | 2020-07-09 15:10 | NUR ---
PT ADMITTED TO ICU FROM ER AT 1223 FOR RESP DISTRESS/PNEUMONIA/SEPSIS. PT ARRIVED AWAKE AND DROWSY. PT ORIENTED AND ABLE TO FOLLOW COMMANDS. PT FELL INTO SOUND SLEEP SOON AFTER ADMIT. PT ARRIVED ON NRB AND PLACED ON BIPAP 16/6/50% W BACK UP RATE 14 BY RT SHORTLY AFTER ARRIVAL. PT DENIES SOB BUT C/O PAIN 8/10 TO BACK. PT STATES HE HAS RECENT COMPRESSION FX TO SPINE IN MULTIPLE PLACES. PT SOMEWHAT OF A POOR HISTORIAN; AT BEDSIDE WHO WAS ABLE TO ANSWER MOST QUESTIONS WELL. PT POST 4WEEKS CHEMO FOR LUNG CA, 6MONTHS POST RADIATION. LUNGS WET/CRACKLES T/O. SATS STABLE ON BIPAP SETTINGS. BP AND HR/RYTHYM STABLE WELL. LR STARTED AT 100CC/HR PER ORDERS. PT HAS WEEPING EDEMA TO ARMS AND PITTING EDEMA 3-4+ T/O. SKIN TEARS NOTED TO ROXANNE/FA X2. SKIN TEARS LEAKING SS FLUID. AREA CLEANED AND DRESSED. STAGE 11 PRESSURE ULCER NOTED TO RIGHT BUTTOCKS/AREA EXCORIATED WELL. PICTURES TAKEN, MEPILEX PLACED TO COCCYX/ULCER AREA. SOME REDNESS NOTED TO BRIGE OF NOSE. GEL PAD PLACED TO BRIGE OF NOSE. PT DID REQUEST MORE PAIN MEDICATION, BUT WAS IN A DEEP SLEEP SHORTLY AFTER ADMIT. CONCERNED THAT HE DOESNT HAVE NORCO 10MG Q4 ORDERED WHICH HE TAKES QUITE REGULARLY AT HOME PER . TO BRING IN FULL MED LIST SHE WAS UNSURE OF DOSES.
--- NOTE | 2020-07-09 18:20 | NUR ---
PT CONT TO SLEEP SOUNDLY ON BIPAP. AWAKENS BRIEFLY THEN FALLS RIGHT BACK TO SLEEP. DINNER AND PO MEDS/FLUIDS HELD FOR NOW UNTIL PT MORE AWAKE/ALERT. VS CONT TO BE STABLE.
[2020-07-10 03:40] LABS: BASOPHILS ABSOLUTE AUTO 0.01 K/mm3 (0.00-0.23); BASOPHILS PERCENT AUTO 0 % (0-2); EOSINOPHILS PERCENT AUTO 0 % (0-6); Hematocrit 36.4 % (37.0-53.0); Hemoglobin 11.2 g/dL (13.5-17.5); IMMATURE GRAN ABSOLUTE AUTO 0.08 K/mm3 (0.00-0.10); IMMATURE GRAN PERCENT AUTO 1 % (0-1); LYMPHOCYTES ABSOLUTE AUTO 2.06 K/mm3 (0.84-5.20); LYMPHOCYTES PERCENT AUTO 20 % (21-46); MONOCYTES ABSOLUTE AUTO 0.42 K/mm3 (0.16-1.47); MONOCYTES PERCENT AUTO 4 % (4-13); Mean Corpuscular HGB 28.9 pg (26.0-34.0); Mean Corpuscular HGB Conc 30.8 g/dL (31.5-36.5); Mean Corpuscular Volume 94 fL (80-100); Mean Platelet Volume 10.2 fL (9.1-12.4); NEUTROPHILS ABSOLUTE AUTO 7.79 K/mm3 (1.96-9.15); NEUTROPHILS PERCENT AUTO 75 % (41-73); Platelet Count 120 K/mm3 (150-400); RDW Coefficient Variation 17.9 % (11.7-14.2); RDW Standard Deviation 62.3 fL (35.1-46.3); Red Blood Cell Count 3.87 M/mm3 (4.30-5.90); White Blood Cell Count 10.36 K/mm3 (4.00-11.30)
[2020-07-10 04:01] LABS: Alanine Aminotransfer (ALT/SGP 26 U/L (12-78); Albumin, Blood 2.2 g/dL (3.4-5.0); Albumin/Globulin Ratio 0.5 (0.8-1.8); Alk Phos 96 U/L (50-136); Anion Gap 4 mmol/L (6-16); Aspartate Aminotrans (AST/SGOT 18 U/L (12-37); Bilirubin, Total 0.6 mg/dL (0.1-1.0); Blood Urea Nitrogen 15 mg/dL (8-24); Bun/Creatinine Ratio 27.5 (12.0-20.0); CO2, Blood 31 mmol/L (21-32); Calcium, Blood 8.6 mg/dL (8.5-10.1); Chloride, Blood 105 mmol/L (98-108); Creatinine, Blood 0.55 mg/dL (0.60-1.20); Globulin, Blood 4.3 g/dL (2.2-4.0); Glomerular Filtration Rate >60 (60-); Glucose, Blood 103 mg/dL (70-99); Magnesium, Blood 2.1 mg/dL (1.6-2.4); Potassium, Blood 4.1 mmol/L (3.5-5.5); Sodium, Blood 140 mmol/L (136-145); Total Protein, Blood 6.5 g/dL (6.4-8.2)
--- NOTE | 2020-07-10 06:26 | NUR ---
PT ADMITED YETERDAY FOR HYPOXIC RESPIRATORY FAILURE AND SOB. PLACED ON BIPAP AND PT IMORVED OVER NIGHT. HIS PAIN MED REGIMEN WAS UPDATED TO MEET HIS NEEDS. PT REMAINED COMFORTABLE ALL NIGHT. WAS UPDATED. NO ACUTE EVENTS OR CLINICAL CONCERNS AT THIS TIME. PT REMAINED ON 30% FIO2 ALL NIGHT AND HE IS NOW MORE ALERT AND REPORTS FEELING BETTER
[2020-07-10 08:13] LABS: PO2 Arterial 61.5 mmHg (80-100); pH Blood Arterial 7.45 (7.35-7.45)
--- NOTE | 2020-07-10 09:11 | NUR ---
Supportive F/U visit this AM. Pt reports feeling beeter. Pt reports intermittent tolerable pain when he coughs. Pt reports anxiety is currently managed. Pt reports no concerns at this time. Spoke with Bedside STAN Dawson and discussed case. Palliative Care will remain available for supportive visits.
--- NOTE | 2020-07-10 15:27 | NUR ---
TRANSFER OF CARE REPORT GIVEN TO RAÚL ON MEDICAL FLOOR. PT TRANSFERED TO ROOM 334. BELONGINGS GATHERED AND TRANSPORTED WITH PT AND . PT WAS ON 6L NC OF O2 AT TRANSFER. PT WAS TRANSPORTED VIA BED, BY [facility].
--- NOTE | 2020-07-10 15:31 | NUR ---
ASSUMED CARE OF PT AT 1520. PT TRANSFERRED FROM ICU TO MEDICAL FLOOR. PT AND ORIENTED TO THE ROOM. PT RESTING IN BED QUIETLY WITH HIS CALL LIGHT IN REACH.
--- NOTE | 2020-07-10 17:31 | NUR ---
SHIFT SUMMARY PT ICU TRANSFER THAT CAME IN RESPIRATORY FAILURE AND HYPOXIA. HX OF LUNG CA AND COPD. PT WEANED OFF BIPAP AND IS CURRENTLY ON 6 L O2 VIA NC. PT ON 3.5 L O2 AT HOME. PT IS MAINLY BEDBOUND AND IS CONT/INCONT. USES THE URINAL IND AT BEDSIDE. LEFT AC IV DC'D DUE TO LEAKING. IV IS NOW IN THE L HAND. VS REVIEWED AND STABLE. PT IS AT THE BEDSIDE. WILL CONTINUE TO MONITOR.
--- NOTE | 2020-07-10 17:39 | NUR ---
Initial spiritual care note: Mr. Redman reports a strong lewis that gives him hope for recovery. He appeares well-loved and supported by family. I supported and affirmed lewis, provided gentle spiritual direction, and offered prayer. Faith reading material provided. Pt and family appreciaitve of interventions. Trade Union Secretary services will remain available.
--- NOTE | 2020-07-11 03:31 | NUR ---
SHIFT SUMMARY: 65 Y/O MALE RESTED COMFORTABLY ALL SHIFT; C/O GENERALIZED PAIN RATED 7/10 WITH NORCO 10/325 PO X 1 GIVEN WITH RELIEF FELT; LUNG SOUNDS ARE DIMINISHED THROUGHOUT WITH INCREASED SOB NOTED SLIGHT ACTIVITY; PT DECONDITIONED AT THIS TIME AND WOULD BENEFIT FROM HOME HEALTH CARE REFERRAL FOR PT/OT; TELEMETRY REFLECTS NSR WITH PAC AND HEART RATE 66 PER FABY--ENROLLMENT ADVISOR; BED LOW POSITION WITH CALL LIGHT AT SIDE.
[2020-07-11 05:02] LABS: PCO2 Arterial 45.4 mmHg (35-45); PO2 Arterial 68.3 mmHg (80-100); pH Blood Arterial 7.44 (7.35-7.45)
[2020-07-11 05:45] LABS: Anion Gap 4 mmol/L (6-16); Blood Urea Nitrogen 14 mg/dL (8-24); Bun/Creatinine Ratio 24.3 (12.0-20.0); CO2, Blood 32 mmol/L (21-32); Calcium, Blood 8.4 mg/dL (8.5-10.1); Chloride, Blood 103 mmol/L (98-108); Creatinine, Blood 0.58 mg/dL (0.60-1.20); Glomerular Filtration Rate >60 (60-); Glucose, Blood 124 mg/dL (70-99); Phosphorus, Blood 2.4 mg/dL (2.5-4.9); Potassium, Blood 3.5 mmol/L (3.5-5.5); Sodium, Blood 139 mmol/L (136-145)
--- NOTE | 2020-07-11 17:28 | NUR ---
SHIFT SUMMARY PT A/O X4, PLEASANT AND COOPERATIVE WITH CARE. PT IS MOSTLY BED BOUND AT BASELINE. HE IS ON 6 L O2 VIA NC. HE WORKED WITH BOTH P.T. AND OT TODAY. HE EXPERIENCES MIXED CONTINENCE BUT IS ABLE TO USE THE URINAL AT BEDSIDE. TURN Q2. HE RECEIVED TWO DOSES OF IV ANTIBIOTICS TODAY WELL. MEDICATED FOR PAIN WITH NORCO. TELE READING SR IN THE 70'S. VS REVIEWED; WILL CONTINUE TO MONITOR.
--- NOTE | 2020-07-11 21:21 | NUR ---
PT RESTING COMFORTABLY IN BED; PAIN RELIEF FELT WITH OXYCONTIN 30MG PO GIVEN.
--- NOTE | 2020-07-12 03:18 | NUR ---
SHIFT SUMMARY: 65 Y/O MALE RESTED COMFORTABLY ALL SHIFT; PT C/O CHRONIC BACK PAIN RATED 7/10 WITH OXYCONTIN 30MG PO GIVEN SCHEDULED MED WITH RELIEF FELT; PT WORE O2 AT 6L/M PER NASAL CANNULA WITH DYSPNEA NOTED SLIGHT ACTIVITY; TELEMETRY REFLECTS NSR PER ROBERT--SHOP FIRER/FIREMAN; +2 PITTING EDEMA NOTED BILATERAL LOWER EXTREMITIES WITH ELEVATION X 2 PILLOWS; BED LOW POSITION WITH CALL LIGHT AT SIDE.
[2020-07-12 05:25] LABS: Hematocrit 36.6 % (37.0-53.0); Hemoglobin 11.6 g/dL (13.5-17.5); Mean Corpuscular HGB Conc 31.7 g/dL (31.5-36.5); Mean Corpuscular Volume 92 fL (80-100); Mean Platelet Volume 10.3 fL (9.1-12.4); Platelet Count 152 K/mm3 (150-400); RDW Coefficient Variation 17.7 % (11.7-14.2); RDW Standard Deviation 59.8 fL (35.1-46.3)
[2020-07-12 05:52] LABS: Albumin, Blood 2.2 g/dL (3.4-5.0); Anion Gap 4 mmol/L (6-16); Blood Urea Nitrogen 14 mg/dL (8-24); Bun/Creatinine Ratio 25.6 (12.0-20.0); CO2, Blood 31 mmol/L (21-32); Calcium, Blood 8.3 mg/dL (8.5-10.1); Chloride, Blood 104 mmol/L (98-108); Creatinine, Blood 0.55 mg/dL (0.60-1.20); Glomerular Filtration Rate >60 (60-); Glucose, Blood 131 mg/dL (70-99); Phosphorus, Blood 2.5 mg/dL (2.5-4.9); Potassium, Blood 3.8 mmol/L (3.5-5.5); Sodium, Blood 139 mmol/L (136-145)
--- NOTE | 2020-07-12 17:09 | NUR ---
PT AOX4 AND COOPERATIVE OF CARE. PT STARTED SHIFT REPORTING HIS BACK PAIN A 2 AND THEN VERY QUICKLY AFTER GOING DOWN TO IMAGING PAIN INCREASED TO A 7. PT TREATED PER EMAR AND DR GIRALDO ORDERED TORADOL FOR ONE DOSE TREATMENT PER EMAR. PT SEEMED TO DO BETTER, BUT PAIN HAS CONTINUED THROUGH THE DAY. HEATING PAD IS IN PLACE WELL. PT ALSO WAS ONLY RUNNING BETWEEN 87-89% O2 AND THIS TRASHMAN INCREASE THE 4L TO 5L. PT RESTING IN BED AT THIS TIME WILL CONTINE TO MONITOR. CALL LIGHT WITHIN REACH AND BED ALARM IN PLACE.
--- NOTE | 2020-07-12 22:32 | NUR ---
PT RESTING COMFORTABLY IN BED; +2 EDEMA NOTED BILATERAL ELBOWS; ABLE DORSIFLEX ELBOWS.
--- NOTE | 2020-07-13 03:43 | NUR ---
SHIFT SUMMARY: 65 Y/O MALE HAD RESTLESS SHIFT AT TIMES WITH C/O BACK PAIN RATED 9/10 WITH SCHEDULED OXYCONTIN 30MG PO GIVEN AND NORCO 10/325 X 1 TAB GIVEN TWICE WITH RELIEF FELT; PT HAS +2 EDEMA TO BILATERAL UPPER ELBOWS AND LOWER EXTREMITIES N NOTED; WEARING O2 AT 3L/M PER NASAL CANNULA, LUNG SOUNDS ARE DIMINISHED THROUGHOUT; PT SCHEDULED FOR ECHO THIS AM; DENIES CHEST PAIN OR NAUSEA; TELEMETRY REFLECTS NSR PER ROBERT--UNSCRAMBLER; ALERT AND ORIENTED X 4; BED LOW POSITION WITH CALL LIGHT AT SIDE.
[2020-07-13 05:38] LABS: Hematocrit 39.4 % (37.0-53.0); Hemoglobin 12.6 g/dL (13.5-17.5); Mean Corpuscular Volume 91 fL (80-100); NRBC ABSOLUTE 0.03 K/mm3 (0.00-0.02); NRBC Auto 0.3 /100 WBC (0.0-0.2); Platelet Count 145 K/mm3 (150-400); RDW Coefficient Variation 18.2 % (11.7-14.2); RDW Standard Deviation 59.7 fL (35.1-46.3); Red Blood Cell Count 4.34 M/mm3 (4.30-5.90); White Blood Cell Count 10.54 K/mm3 (4.00-11.30)
[2020-07-13 06:11] LABS: Albumin, Blood 2.3 g/dL (3.4-5.0); Anion Gap 6 mmol/L (6-16); Blood Urea Nitrogen 17 mg/dL (8-24); Bun/Creatinine Ratio 30.6 (12.0-20.0); CO2, Blood 31 mmol/L (21-32); Calcium, Blood 8.6 mg/dL (8.5-10.1); Chloride, Blood 103 mmol/L (98-108); Creatinine, Blood 0.56 mg/dL (0.60-1.20); Glomerular Filtration Rate >60 (60-); Glucose, Blood 89 mg/dL (70-99); Magnesium, Blood 2.1 mg/dL (1.6-2.4); Phosphorus, Blood 3.2 mg/dL (2.5-4.9); Potassium, Blood 3.8 mmol/L (3.5-5.5); Sodium, Blood 140 mmol/L (136-145)
--- NOTE | 2020-07-14 04:50 | NUR ---
SHIFT SUMMARY AA0X4. PT ON 4L O2 DURING SHIFT, SATS ABOVE 92% T/O SHIFT. PT DENIES SOB. PT REPOSITIONS SELF IN BED, NURSE ASSISTED TWICE TO HELP SHIFT HIPS. VOIDING IN URINAL, CONT OF BLADDER. MEDICATED FOR PAIN WITH SCHEDULED MEDICATIONS AND PT STATED RELIEF DURING SHIFT, REPORTS SLEEPING. PLAN TO CONTINUE TO WEAN OFF OXYGEN UNTIL RETURNING TO BASELINE.
[2020-07-14 05:43] LABS: Albumin, Blood 2.2 g/dL (3.4-5.0); Anion Gap 6 mmol/L (6-16); Blood Urea Nitrogen 24 mg/dL (8-24); Bun/Creatinine Ratio 38.8 (12.0-20.0); CO2, Blood 31 mmol/L (21-32); Calcium, Blood 8.7 mg/dL (8.5-10.1); Chloride, Blood 102 mmol/L (98-108); Creatinine, Blood 0.62 mg/dL (0.60-1.20); Glomerular Filtration Rate >60 (60-); Glucose, Blood 115 mg/dL (70-99); Phosphorus, Blood 3.7 mg/dL (2.5-4.9); Potassium, Blood 3.7 mmol/L (3.5-5.5); Sodium, Blood 139 mmol/L (136-145)
--- NOTE | 2020-07-14 15:41 | NUR ---
Pt met with physician to rview pain management and medications. Asked to give pt and information on hospice. Reivw of pt needs and symptoms. pt denies headaches focus was on dyspnea nd air hunger. Review with and pt burden of ventilation and airhunger and being able to rehavb. pt has also struggled with sleep. focus on taking naps and shorter blocks of sleep so more consistant medication dosing. My need to increase anexiety meds. Review of non pharmacogical aids in diversion for anexiety and pain. Review of prognosis and information from physician. They wanted information on hospice review of discipline symtom managment and support to family. Suggested he speak with Dr Foster on when to go on hospice. Pt responded well to that suggestion. Gave his out number and offered support.
--- NOTE | 2020-07-14 17:47 | NUR ---
SHIFT SUMMARY PT HAD A LOT OF PAIN THIS AM AND IT TOOK THIS RN SOME TIME TO GET IT UNDER CONTROL. PT ANXIOUS AND XANAX WAS GIVEN. PT HAS BEEN CALMER SINCE. PT HAD A BED BATH AND AN EGG CRATE PLACED FOR MORE COMFORT. PT DID COMPLAIN OF PAIN WITH MOVING BUT REPORTED FEELING BETTER AFTER STAFF WERE DONE AND HE RECEIVED PAIN MEDICATION. PT C/O HAVING TO VOID CONSTANTLY WHEN RECEIVIGN IV LASIX BUT DECLINED TO HAVE CONDOM CATH PLACED DURING WHILE GETTING IT. SPOUSE AT BEDSIDE DURING THIS SHIFT. NO ACUTE CHANGES AT THIS TIME. CALL LIGHT IN REACH. WILL CONTINUE TO MONITOR AND REPORT TO ONCOMING RN.
--- NOTE | 2020-07-15 05:00 | NUR ---
SHIFT SUMMARY: TACHYCARDIC, PULSE 106, 90, 105. 02 SATS 88-89% ON 6L VIA NC. INSP WHEEZE IN R MID LOBE. RHONCHI AUSCULTATED THROUGHOUT. CONT W/ R CHEST AND BACK PAIN. MED X 1 FOR BREAKTHROUGH PAIN W/ GOOD EFFECT. XANAX GIVEN PER PT REQUEST FOR RESTLESSNESS. PT STATES HE IS SOB WHEN PAINFUL, THIS WAS OBSERVED. NO COUGHING NOTED TONIGHT. STATES HE HAS SLEPT WELL. NO ACUTE CONCERNS AT THIS TIME.
[2020-07-15 09:53] LABS: Albumin, Blood 2.2 g/dL (3.4-5.0); Anion Gap 5 mmol/L (6-16); Blood Urea Nitrogen 24 mg/dL (8-24); Bun/Creatinine Ratio 38.3 (12.0-20.0); CO2, Blood 33 mmol/L (21-32); Calcium, Blood 8.6 mg/dL (8.5-10.1); Chloride, Blood 100 mmol/L (98-108); Creatinine, Blood 0.63 mg/dL (0.60-1.20); Glomerular Filtration Rate >60 (60-); Glucose, Blood 149 mg/dL (70-99); Phosphorus, Blood 3.2 mg/dL (2.5-4.9); Potassium, Blood 3.7 mmol/L (3.5-5.5); Sodium, Blood 138 mmol/L (136-145)
--- NOTE | 2020-07-15 15:16 | NUR ---
URINARY RETENTION PT HAS COMPLAINS OF PAIN IN BLADDER AND WITH VOIDING. BLADDER SCAN WAS DONE AND FOUND TO HAVE 501 ML IN BLADDER. PT VOIDED [address] GIRALDO AWARE OF RETENTION. PT HAS DECLINED TO DO A STRAIGHT CATH AT THIS TIME BUT REPORTS MAY DO IT LATER IF NEEDED. NO FURTHER ORDERS AT THIS TIME. CALL LIGHT IN REACH.
--- NOTE | 2020-07-15 19:31 | NUR ---
SHIFT SUMMARY MEDICATED FOR PAIN X2 WITH PRN MEDICATIONS AND X1 WITH SCHEDULED MEDICATIONS. PT HAS HAD NO COMPLAINTS OF PAIN OR DIFFICULTY VOIDING THIS EVENING. ORDER STILL IN FOR X1 STRAIGHT CATH IF NEEDED. SPOUSE AT BEDSIDE. PT DECLINES TO BE TURNED OFTEN. PLANS FOR PT/SPOUSE TO TALK WITH DR. JOHNSON ABOUT CANCER AND TREATMENT VS HOSPICE. DR. GIRALDO AWARE. NO DISTRESS AT THIS TIME. CALL LIGHT IN REACH. REPORT GIVEN TO ROSAS PIERCE.
--- NOTE | 2020-07-16 05:07 | NUR ---
SHIFT SUMMARY HAS BEEN RESTING QUIETLY WITH FEW INTERRUPTIONS. MEDICATED FOR PAIN X 1 DUTING NIGHT. ASSISTED WITH REPOSITIONING. HOB ELEVATED FOR COMFORT. CALL LIGHT IN REACH.
[2020-07-16 06:49] LABS: Albumin, Blood 2.1 g/dL (3.4-5.0); Anion Gap 6 mmol/L (6-16); Blood Urea Nitrogen 26 mg/dL (8-24); Bun/Creatinine Ratio 40.4 (12.0-20.0); CO2, Blood 30 mmol/L (21-32); Calcium, Blood 8.8 mg/dL (8.5-10.1); Chloride, Blood 100 mmol/L (98-108); Creatinine, Blood 0.64 mg/dL (0.60-1.20); Glomerular Filtration Rate >60 (60-); Glucose, Blood 131 mg/dL (70-99); Phosphorus, Blood 3.6 mg/dL (2.5-4.9); Potassium, Blood 4.2 mmol/L (3.5-5.5); Sodium, Blood 136 mmol/L (136-145)
[2020-07-16] MEDS ORDERED: BUDE.25 INH (15:00)
[2020-07-16] MEDS ORDERED: GUAI600T33 PO (15:00)
[2020-07-16] MEDS ORDERED: DUONEB INH (15:11)
[2020-07-16] MEDS ORDERED: LEVOFLOXACIN750 MG PO (15:12)
[2020-07-16] MEDS ORDERED: LIDOCAINE PAIN1 EACH TOP (15:14)
[2020-07-16] MEDS ORDERED: PROBIOTIC PO (15:15)
[2020-07-16] MEDS ORDERED: MIRALAX17 GM PO (15:15)
[2020-07-16] MEDS ORDERED: PERCOCET 10-321 EAC2 PO (15:15)
--- NOTE | 2020-07-16 16:30 | NUR ---
patient discharge: patient discharged to home/xfr to hospice this shift. medication reconciliation completed; [facility] hard scripts provided to patient & family for controlled substances. pt transported to exit by [facility] with marissa at 1616. patient departed [facility] via [facility].
== END 2020-07-16 16:17 | disposition hospice, home (50) | DRG 871 ==
LOC: ER 06:20 → ICUW 09:29 → MEDS 09:29 → ER 12:20 → ICUW 12:32 → ER 12:57 → ICUW 07-10 08:48 → MEDS 07-10 15:20
PROVIDERS: Emergency Medicine; Internal Medicine; Nurse Practitioner Acute Care; ADMIT Hospitalist
DX: A41.9 Sepsis, unspecified organism (principal); J18.9 Pneumonia, unspecified organism; I50.21 Acute systolic (congestive) heart failure; J96.21 Acute and chronic respiratory failure with hypoxia; J96.22 Acute and chronic respiratory failure with hypercapnia; J44.0 Chronic obstructive pulmonary disease with (acute) lower respiratory infection; C34.90 Malignant neoplasm of unspecified part of unspecified bronchus or lung; C91.11 Chronic lymphocytic leukemia of B-cell type in remission; R65.20 Severe sepsis without septic shock; I27.20 Pulmonary hypertension, unspecified; I08.1 Rheumatic disorders of both mitral and tricuspid valves; G89.4 Chronic pain syndrome; F41.1 Generalized anxiety disorder; N40.1 Benign prostatic hyperplasia with lower urinary tract symptoms; R33.8 Other retention of urine; M81.0 Age-related osteoporosis without current pathological fracture; K21.9 Gastro-esophageal reflux disease without esophagitis; Z86.718 Personal history of other venous thrombosis and embolism; Z99.81 Dependence on supplemental oxygen; Z92.21 Personal history of antineoplastic chemotherapy; Z92.3 Personal history of irradiation; Z87.891 Personal history of nicotine dependence; Z79.01 Long term (current) use of anticoagulants; Z79.1 Long term (current) use of non-steroidal anti-inflammatories (NSAID)
CPT/HCPCS: 36415; 36600; 71045; 71046; 71260; 80053; 80069; 81001; 82803; 83605; 83735; 83880; 84145; 85025; 85027; 87040; 87070; 87205; 87449; 93005; 93010; 93306; 94640; 94644; 94660; 94760; 96365-59; 96367-59; 96375-59; 97110; 97161; 97166; 97530; 99285-25; A9270; A9270-GY; J0456; J0696; J1885; J1940; J2930; J7050; J7120; P9046; Q9967